=== PATIENT | female | born 1975 | race African-American/Black ===

== ENCOUNTER 2017-03-17 08:23 | Emergency (ER) | payer MEDICAID, OTHER ==
[~2017-03-17] VITALS: Ht 167.6 cm; Wt 68.0 kg
[~2017-03-17 08:23] MED LIST: no meds
[2017-03-17 08:39] VITALS: BP 115/67
[2017-03-17] MEDS ORDERED: AMOX500T2 PO (08:42)
[2017-03-17] MEDS ORDERED: IBUP-1510 PO (08:42)
== END 2017-03-17 10:14 | disposition home or self-care (01) ==
LOC: ER 08:23
DX: H66.91 Otitis media, unspecified, right ear (principal)
CPT/HCPCS: 99282

== ENCOUNTER 2018-05-25 08:36 | Emergency (ER) | payer MEDICAID ==
[~2018-05-25] VITALS: Ht 170.2 cm; Wt 73.0 kg
[~2018-05-25 08:36] MED LIST changes: +AMOX500T2 PO; +IBUP-2030 PO
[2018-05-25 10:24] VITALS: BP 106/64
== END 2018-05-25 10:00 | disposition home or self-care (01) ==
LOC: ER 08:36
DX: H60.91 Unspecified otitis externa, right ear (principal)
CPT/HCPCS: 99283